=== PATIENT | male | born 1990 | race Caucasian/White ===

== ENCOUNTER 2018-03-22 16:09 | Emergency (ER) | payer MEDICAID ==
[~2018-03-22] VITALS: Ht 193 cm; Wt 119.8 kg
[2018-03-22 16:16] VITALS: BP 141/88
== END 2018-03-22 18:19 | disposition home or self-care (01) ==
LOC: ED 18:00
DX: L03.115 Cellulitis of right lower limb (principal); J45.909 Unspecified asthma, uncomplicated
CPT/HCPCS: 36415; 84550; 99285

== ENCOUNTER 2019-04-09 14:11 | Emergency (ER) | payer MEDICAID ==
[~2019-04-09] VITALS: Ht 193 cm; Wt 122.7 kg
[2019-04-09] MEDS ORDERED: ONDANSETRON ODT 4 MG PO ONE (14:30)
[2019-04-09 14:37] LABS: BASOPHILS # (AUTO) 0.04 x10^3/uL (0-0.1); BASOPHILS % (AUTO) 1 % (0-1); EOSINOPHILS # (AUTO) 0.46 x10^3/uL (0-0.4); EOSINOPHILS % (AUTO) 7 % (1-7); LYMPHOCYTES # (AUTO) 2.05 x10^3/uL (1-3.4); LYMPHOCYTES % (AUTO) 30 % (22-44); MD NO; MEAN CORPUSCULAR HEMOGLOBIN 32.1 pg (27.5-34.5); MEAN CORPUSCULAR HGB CONC 34.5 g/dL (33.2-36.2); MEAN CORPUSCULAR VOLUME 92.9 fL (81-97); MEAN PLATELET VOLUME 9.7 fL (7.4-10.4); MONOCYTES # (AUTO) 0.57 x10^3/uL (0.2-0.8); MONOCYTES % (AUTO) 8 % (2-9); NEUTROPHILS # (AUTO) 3.63 x10^3/uL (1.8-6.8); NEUTROPHILS % (AUTO) 54 % (42-75); PLATELET COUNT 292 x10^3/uL (130-400); RED BLOOD COUNT 5.14 x10^6/uL (4.38-5.82); RED CELL DISTRIBUTION WIDTH 12.4 % (9.4-14.8)
[2019-04-09 14:50] LABS: ALBUMIN 4.3 g/dL (3.4-5.0); ANION GAP 4 mmol/L (5-15); CALCIUM 9.5 mg/dL (8.5-10.1); CHLORIDE 107 mmol/L (98-107)
[2019-04-09 14:54] LABS: ALANINE AMINOTRANSFERASE 51 U/L (12-78); ALKALINE PHOSPHATASE 74 U/L (45-117); BILIRUBIN,TOTAL 1.1 mg/dL (0.2-1.0); CREATININE 1.13 mg/dL (0.7-1.3)
--- NOTE | 2019-04-09 14:59 | NUR ---
PATIENT ARRIVES TO THE ER WITH "NOT FEELING WELL" AND JUST FEELING WEAK AND SICK FOR PAST FEW DAYS. HE STATES HE HAS A GROWTH OR LUMP IN HIS MID ABDOMEN LEFT SIDE THAT IS BOTHERING HIM WELL, AND NAUSEA; ABDOMINAL PAIN. GETTING URINE SAMPLE FROM PATIENT, THEN IN BED, ON MONITOR, GOWNED, BLANKET.
--- NOTE | 2019-04-09 15:05 | NUR ---
URINE SENT TO LAB. PATIENTS ABDOMINAL PAIN GETS WORSE WITH FOOD.
[2019-04-09 15:16] LABS: MICROSCOPIC NOT IND
[2019-04-09 15:22] LABS: CULTURE INDICATED? NO
[2019-04-09] MEDS ORDERED: ONDANSETRON ODT 4 MG ONE (15:42)
--- NOTE | 2019-04-09 15:44 | NUR ---
PATIENT IN BED. MEDICATED FOR PAIN. AWAITING ED WORKUP
[2019-04-09 16:11] VITALS: BP 135/78
--- NOTE | 2019-04-09 16:32 | NUR ---
patient discharge teaching reviewed, shows understanding. patient states feels improved.
== END 2019-04-09 17:02 | disposition home or self-care (01) ==
LOC: ED 16:05
DX: K29.00 Acute gastritis without bleeding (principal); R10.32 Left lower quadrant pain; J45.909 Unspecified asthma, uncomplicated
CPT/HCPCS: 36415; 71046; 80053; 81003; 83690; 85025; 93005; 99284; Q0162